=== PATIENT | male | born 1990 | race Caucasian/White ===

== ENCOUNTER 2022-10-20 07:39 | Day surgery (SDC) | payer OTHER ==
[2022-10-19 12:30] VITALS: BMI 31.6
[2022-10-20] MEDS ORDERED: EPINEPHrine 1 MG/ML AMP ONE (09:08)
[2022-10-20] MEDS ORDERED: Lidocaine 1% (PF) 30 ML VIAL ONE (09:08)
[2022-10-20] MEDS ORDERED: HYDROmorphone 0.5 MG/0.5 ML SYRINGE ONE (09:27)
[2022-10-20] MEDS ORDERED: Midazolam HCl 2 mg/2 ml Vial ONE (09:27)
[2022-10-20] MEDS ORDERED: fentaNYL PF 100 MCG/2 ML SYRINGE ONE (09:27)
[2022-10-20] MEDS ORDERED: Ondansetron PF 4 MG/2 ML Vial ONE (09:33)
[2022-10-20] MEDS ORDERED: Dexamethasone 20 MG/5 ML VIAL ONE (09:33)
[2022-10-20] MEDS ORDERED: PROPOFOL 200 MG/20 ML VIAL ONE (09:33)
[2022-10-20] MEDS ORDERED: Lidocaine 1% PF 5 ML VIAL ONE (09:33)
[2022-10-20] MEDS ORDERED: HYDROcodone/Acetaminophen 5/325 mg Tablet ONE (11:26)
== END 2022-10-20 12:10 | disposition home or self-care (01) ==
LOC: SDC 07:39
PROVIDERS: ATTEND Otolaryngology Plastic Surgery within the Head & Neck
PROC: 0WB60ZZ Excision of Neck, Open Approach (ICD-10-PCS; principal; 2022-10-20)
DX: Q89.2 Congenital malformations of other endocrine glands (principal); Z79.899 Other long term (current) drug therapy; Z88.0 Allergy status to penicillin; Z88.1 Allergy status to other antibiotic agents
CPT/HCPCS: 88305; J0171; J1100; J1170; J2001; J2250; J2405; J2704